=== PATIENT | male | born 1980 | race Caucasian/White ===

== ENCOUNTER → 2018-01-30 16:49 | Outpatient (CLI) | payer OTHER, SELFPAY ==
[2018-01-30 18:01] LABS: Cholesterol 233 mg/dL (140-199); Glucose 98 mg/dL (70-100); HDL Cholesterol 46 mg/dL (40-60); LDL Cholesterol Calculated 163 mg/dL (<100); Triglycerides 120 mg/dL (35-150)
[2018-01-30 18:33] LABS: TSH w/ Reflex to FT4 1.19 uIU/mL (0.47-4.68)
== END ==
PROVIDERS: Family Provider Family Medicine; PCP Family Medicine; Visit Provider Family Medicine
DX: Z13.220 Encounter for screening for lipoid disorders (principal); Z13.1 Encounter for screening for diabetes mellitus; Z00.00 Encounter for general adult medical examination without abnormal findings
CPT/HCPCS: 36415; 80061; 82947; 84443

== ENCOUNTER → 2019-07-22 14:54 | Outpatient (CLI) | payer OTHER, SELFPAY ==
[2019-07-22 16:56] LABS: Add Manual Diff / Slide Review NO; Basophils Absolute Auto 0 /uL (0-100); Basophils Percent Auto 0.3 % (0-2); Eosinophils Absolute Auto 100 /uL (0-450); Eosinophils Percent Auto 1.8 % (2-4); Hematocrit 46.1 % (41-53); Hemoglobin 16.5 g/dL (13.5-17.5); Lymphocytes Absolute Auto 2300 /uL (1100-4500); Lymphocytes Percent Auto 32.3 % (25-40); Mean Corpuscular HGB Conc 35.8 % (30-36); Mean Corpuscular Hemoglobin 32.1 PG (26-34); Mean Corpuscular Volume 89.7 fL (80-100); Monocytes Absolute Auto 800 /uL (0-900); Monocytes Percent Auto 11.4 % (3-14); Neutrophils Absolute Auto 3900 /uL (1500-7000); Neutrophils Percent Auto 54.2 % (50-75); Platelet Count 300 X10^3/uL (150-400); Red Blood Cell Count 5.14 X10^6/uL (4.5-5.9); Red Cell Distribution Width 12.5 % (11.6-14.8); White Blood Cell Count 7.2 X10^3/uL (4.5-11.0)
[2019-07-22 17:28] LABS: Alanine Aminotransferase 21 IU/L (<50); Albumin 4.9 g/dL (3.5-5.0); Albumin Globulin Ratio 1.5 (1.0-2.8); Alkaline Phosphatase 62 U/L (38-126); Aspartate Aminotransferase 33 IU/L (17-59); BUN Creatinine Ratio 15.6 (6-22); Bilirubin Total 0.7 mg/dL (0.2-1.3); Blood Urea Nitrogen 14 mg/dL (9-20); Carbon Dioxide 31 mmol/L (22-32); Chloride 98 mmol/L (98-107); Estimated Glomerular Filt Rate > 60.0 mL/min (>60); Globulin 3.2 g/dL (1.7-4.1); Glucose 81 mg/dL (70-100); HEMOLYSIS < 15 (0-50); Potassium 4.6 mmol/L (3.4-5.1); Sodium 139 mmol/L (137-145); Total Protein 8.1 g/dL (6.3-8.2)
== END ==
PROVIDERS: Family Provider Family Medicine; PCP Family Medicine; Visit Provider Physician Assistant Medical
DX: Z79.899 Other long term (current) drug therapy (principal)
CPT/HCPCS: 36415; 80053; 85025

== ENCOUNTER → 2022-10-10 09:23 | Outpatient (CLI) | payer OTHER, SELFPAY ==
[2022-10-10 11:29] LABS: Alanine Aminotransferase 26 IU/L (<50); Albumin 4.4 g/dL (3.5-5.0); Albumin Globulin Ratio 1.2 (1.0-2.8); Alkaline Phosphatase 63 U/L (38-126); Aspartate Aminotransferase 31 IU/L (17-59); BUN Creatinine Ratio 20.4 (6-22); Bilirubin Total 0.6 mg/dL (0.2-1.3); Blood Urea Nitrogen 21 mg/dL (9-20); Calcium 9.1 mg/dL (8.4-10.2); Carbon Dioxide 28 mmol/L (22-32); Chloride 100 mmol/L (98-107); Cholesterol 273 mg/dL (140-199); Estimated Glomerular Filt Rate > 60 mL/min (>60); Globulin 3.7 g/dL (1.7-4.1); Glucose 94 mg/dL (70-100); HDL Cholesterol 43 mg/dL (40-60); HEMOLYSIS < 15 (0-50); LDL Cholesterol Calculated 177 mg/dL (<100); Potassium 4.2 mmol/L (3.4-5.1); Sodium 138 mmol/L (137-145); Total Protein 8.1 g/dL (6.3-8.2); Triglycerides 267 mg/dL (35-150)
[2022-10-10 11:53] LABS: TSH w/ Reflex to FT4 2.12 uIU/mL (0.47-4.68)
== END ==
PROVIDERS: Family Provider Family Medicine; PCP Family Medicine; Referring Provider Physician Assistant; Visit Provider Physician Assistant
DX: E78.5 Hyperlipidemia, unspecified (principal)
CPT/HCPCS: 36415; 80053; 80061; 84443

== ENCOUNTER → 2022-12-05 09:58 | Outpatient (CLI) | payer OTHER, SELFPAY ==
[2022-12-05 11:28] LABS: Cholesterol 191 mg/dL (140-199); HDL Cholesterol 48 mg/dL (40-60); LDL Cholesterol Calculated 91 mg/dL (<100); Triglycerides 261 mg/dL (35-150)
== END ==
PROVIDERS: Family Provider Family Medicine; PCP Family Medicine; Referring Provider Physician Assistant; Visit Provider Physician Assistant
DX: E78.5 Hyperlipidemia, unspecified (principal)
CPT/HCPCS: 36415; 80061

== ENCOUNTER → 2024-07-07 12:26 | Outpatient (CLI) | payer OTHER, SELFPAY ==
[2024-07-07 14:01] LABS: Add Manual Diff / Slide Review NO; Basophils Absolute Auto 0 /uL (0-100); Basophils Percent Auto 0.3 % (0-2); Eosinophils Absolute Auto 100 /uL (0-450); Eosinophils Percent Auto 2.1 % (2-4); Hematocrit 46.8 % (41-53); Hemoglobin 16.3 g/dL (13.5-17.5); Lymphocytes Absolute Auto 1800 /uL (1100-4500); Lymphocytes Percent Auto 27.9 % (25-40); Mean Corpuscular HGB Conc 34.7 % (30-36); Mean Corpuscular Hemoglobin 32.4 PG (26-34); Mean Corpuscular Volume 93.4 fL (80-100); Monocytes Absolute Auto 800 /uL (0-900); Monocytes Percent Auto 12.5 % (3-14); Neutrophils Absolute Auto 3800 /uL (1500-7000); Neutrophils Percent Auto 57.2 % (50-75); Platelet Count 259 X10^3/uL (150-400); Red Blood Cell Count 5.01 X10^6/uL (4.5-5.9); White Blood Cell Count 6.6 X10^3/uL (4.5-11.0)
[2024-07-07 14:19] LABS: Alanine Aminotransferase 35 IU/L (<50); Albumin 4.6 g/dL (3.5-5.0); Albumin Globulin Ratio 1.6 (1.0-2.8); Alkaline Phosphatase 66 U/L (38-126); Aspartate Aminotransferase 40 IU/L (17-59); BUN Creatinine Ratio 17.5 (6-22); Bilirubin Total 0.8 mg/dL (0.2-1.3); Blood Urea Nitrogen 17 mg/dL (9-20); Calcium 9.4 mg/dL (8.4-10.2); Carbon Dioxide 27 mmol/L (22-32); Chloride 102 mmol/L (98-107); Cholesterol 182 mg/dL (140-199); Estimated Glomerular Filt Rate > 60 mL/min (>60); Globulin 2.8 g/dL (1.7-4.1); Glucose 98 mg/dL (70-100); HDL Cholesterol 51 mg/dL (40-60); HEMOLYSIS < 15 (0-50); LDL Cholesterol Calculated 103 mg/dL (<100); Potassium 4.5 mmol/L (3.4-5.1); Sodium 139 mmol/L (137-145); Total Protein 7.4 g/dL (6.3-8.2); Triglycerides 142 mg/dL (35-150)
== END ==
PROVIDERS: Family Provider Family Medicine; PCP Family Medicine; Referring Provider Physician Assistant; Visit Provider Physician Assistant
DX: E78.5 Hyperlipidemia, unspecified (principal); L40.9 Psoriasis, unspecified; F90.2 Attention-deficit hyperactivity disorder, combined type
CPT/HCPCS: 36415; 80053; 80061; 84443; 85025

== ENCOUNTER 2025-01-06 06:37 | Day surgery (SDC) | payer OTHER, SELFPAY ==
--- NOTE | 2025-01-06 | PATH_ITS ---
[facility] Accession Number: [id number] No. of containers.. Tissue . 01 Material submitted: . PART A: colon - DISTAL SIGMOID POLYP PART B: rectosigmoid junction - RECTOSIGMOID JUNCTION POLYP PART C: colon - COLON, ASCENDING POLYP AT 75 CM X3 PART D: colon - SIGMOID POLYP AT 50 CM PART E: colon - COLON, ASCENDING POLYP AT 70 CM PART F: colon - COLON, ASCENDING POLYP AT 100 CM X2 PART G: colon - COLON, TRANSVERSE POLYP AT 85 CM PART H: colon - COLON, SIGMOID POLYP AT 55 CM X2 . 01 Diagnosis: Part A: DISTAL SIGMOID POLYP: Tubular adenoma. . Part B: RECTOSIGMOID JUNCTION POLYP: Tubular adenoma. . Part C: COLON, ASCENDING POLYP AT 75 CM X3: Tubular adenomas. Hyperplastic polyp. . Part D: SIGMOID POLYP AT 50 CM: Tubular adenoma. . Part E: COLON, ASCENDING POLYP AT 70 CM: Tubular adenoma. . Part F: COLON, ASCENDING POLYP AT 100 CM X2: Tubular adenomas. . Part G: COLON, TRANSVERSE POLYP AT 85 CM: Tubular adenoma. . Part H: COLON, SIGMOID POLYP AT 55 CM X2: Tubular adenoma. [facility] 01/14/2025 1414 Local . 01 Electronically signed: . Karel Beth MD, Pathologist NPI- [id number] . 01 Gross description: . Part A: DISTAL SIGMOID POLYP: Received in formalin are 3 fragments of raphael soft tissue measuring 1.6 x 01.5 x 2.0 cm in aggregate. Specimen is sectioned and submitted in its entirety in 3 cassettes. . Part B: RECTOSIGMOID JUNCTION POLYP: Received in formalin is 1 fragment(s) of raphael, soft tissue measuring 0.3 x 0.3 x 0.3 cm submitted entirely in 1 cassette(s) . Part C: COLON, ASCENDING POLYP AT 75 CM X3: Received in formalin are 3 fragments of raphael soft tissue measuring 0.8 x 0.8 x 1.0 cm in aggregate. Specimen is sectioned and submitted in its entirety in 2 cassettes. . Part D: SIGMOID POLYP AT 50 CM: Received in formalin is 1 fragment(s) of raphael, soft tissue measuring 0.7 x 0.3 x 0.2 cm submitted entirely in 1 cassette(s) . Part E: COLON, ASCENDING POLYP AT 70 CM: Received in formalin is 1 fragment of raphael soft tissue measuring 0.7 x 0.7 x 0.9 cm. Specimen is sectioned and submitted in its entirety in 1 cassette. . Part F: COLON, ASCENDING POLYP AT 100 CM X2: Received in formalin are multiple fragment(s) of raphael, soft tissue measuring 0.1 x 0.1 x 0.1 cm to 0.6 x 0.6 x 0.5 cm submitted entirely in 1 cassette(s) . Part G: COLON, TRANSVERSE POLYP AT 85 CM: Received in formalin is 1 fragment(s) of raphael, soft tissue measuring 0.7 x 0.6 x 0.5 cm submitted entirely in 1 cassette(s) . Part H: COLON, SIGMOID POLYP AT 55 CM X2: Received in formalin are 3 fragment(s) of raphael, soft tissue measuring 0.1 x 0.1 x 0.1 cm to 0.7 x 0.4 x 0.3 cm submitted entirely in 1 cassette(s) /[facility] 01/14/2025 1414 Local . 01 Pathologist provided ICD-10: D12.2, D12.3, D12.5, D12.7 . 01 CPT . 171919, 086661, 195294, [id number], [id number], [id number], [id number], [id number] Performed at: [address], [place], [place] [id number] MD Karel Beth MD Phone: [phone]
--- NOTE | 2025-01-06 07:06 | PM.PN.IH.1 ---
Subjective Subjective Date Patient Seen: 01/06/25 Time Patient Seen: 07:06 Interval history: Patient presents for his first screening colonoscopy exam. Exam Const General: comfortable Orientation: alert and oriented x3 HENMT Ears: hearing grossly normal bilaterally Eyes Visual Crowe: normal visual crowe by confrontation Conjunctivae: conjunctivae normal Sclera: sclerae normal EOM: EOM intact bilaterally Resp Effort & Inspection: normal respiratory effort and able to speak in complete sentences Cardio Rate: regular rate GI Palpation: soft (non-tender) Extrem General: normal to inspection [facility] Medical History Eczema (1995) Psoriasis (1995) Contact dermatitis Encounter for general adult medical examination without abnormal findings (11/06/16) Surgical History No history of previous surgery (08/2014) Family History Father Age: 80 Hypertension High cholesterol Mother Age: 74 Cancer Bone cancer Grandfather Asbestosis Cancer Grandmother No problems noted. Social History marital status: alcohol intake: current (1-3 A WEEK ) substance use type: does not use Assessment & Plan Assessment and plan (1) Encounter for screening colonoscopy: Status: Acute Assessment & Plan narrative: Needs screening colonoscopy Plan colonoscopy, possible polypectomy/biopsy. The risks, benefits and options regarding the procedure were explained to the patient in detail. Risk discussion included but not limited to bleeding, perforation, missed lesions. The patient was encouraged to ask questions and they were answered to their satisfaction. The patient understands and is agreeable to proceed. Time-Based Coding :: [TOTAL MINUTES] spent with patient and on the chart (including review of chart, obtaining history, exam, reviewing outside data, placing orders, documenting exam and treatment plan, and counseling patient) on [DATE]. [employer]EE Employment Counselor Document charge(s): Yes
[2025-01-06 07:13] VITALS: BP 136/87; PULSE 97; RESP 16; TEMP 35.7; O2SAT 95
[2025-01-06] MEDS: LACTATED RINGERS 1,000 ML 42 ML IV (07:15)
--- NOTE | 2025-01-06 07:36 | P.OP.COLON_ITS ---
Operative Date/Time/Diagnoses Date of procedure: 01/06/25 Time of procedure: 09:07 Pre-op diagnosis: Needs screening colonoscopy Post-op diagnosis: other (Multiple (x12) pedunculated, adenomatous polyps) Procedure & Clinicians Study performed: Colonoscopy with polypectomy x 12 Same procedure(s) as scheduled: Yes Indications: 44yo M needs first screening colonoscopy. Surgeon: Ritchie Lockett Anesthesia Type: Sedation Procedure Notes SCOAP/Timeout: Performed Procedure in detail: Patient placed in left lateral recumbent position. Time out was performed. Procedural sedation was administered by anesthesia. Examination began with a thorough inspection of the perianal area. There was no evidence of fissures, fistulae, external hemorrhoids or cutaneous malignancy. The colonoscope was then placed into the rectum and the lumen was insufflated with carbon dioxide. The scope was carefully advanced forward. Ultimately the cecum was intubated and confirmed by identification of the ileocecal valve, the appendiceal orifice and the confluence of the taenia. The scope was then slowly withdrawn examining the colon thoroughly in all directions. In the rectum, retroflexion of the scope was performed for inspection of the distal rectum and anal canal. ?The colonoscopy was notable for the following: ?1. Quality of the preparation-good, [place] 2 ?2. Multiple (x12) pedunculated, adenomatous polyps from sigmoid to cecum, largest 5cm at rectosigmoid junction, additional polyps 1-2cm, all removed with hot snare with good hemostasis. 3. Polyp locations: rectosigmoid junction, large 5cm polyp x 1 distal sigmoid x 1 sigmoid x 3 transverse colon 85cm x 1 ascending colon x 6 Scope withdrawal time: 17 minutes Findings: polyp(s) Specimen(s): other (multiple polyps) Complications: none Impression: Multiple pedunculated, adenomatous polyps, removed with hot snare, retrieved No known FH for colon cancer H/O smoker, EtOH Await patholoy report Plan repeat colonoscopy in 1-year given number and size of polyps Post-procedure Recommendations: Colonoscopy in 1 year Plan for aftercare: Resume diet Follow up: as needed Disposition: PACU
[2025-01-06 09:08] VITALS: BP 92/64; PULSE 78; RESP 18; TEMP 36.1; O2SAT 95
[2025-01-06 09:15] VITALS: BP 107/71; PULSE 86; RESP 15; TEMP 36.1; O2SAT 96
== END 2025-01-06 09:31 | disposition home or self-care (01) ==
PROVIDERS: Family Provider Family Medicine; PCP Family Medicine; Referring Provider Surgery; Visit Provider Surgery
PROC: 0DJD8ZZ Inspection of Lower Intestinal Tract, Via Natural or Artificial Opening Endoscopic (ICD-10-PCS; CPT 45378; principal; 2025-01-06 07:45)
DX: Z12.11 Encounter for screening for malignant neoplasm of colon (principal); D12.7 Benign neoplasm of rectosigmoid junction; D12.2 Benign neoplasm of ascending colon; D12.5 Benign neoplasm of sigmoid colon; D12.3 Benign neoplasm of transverse colon
CPT/HCPCS: 45385; J2704